=== PATIENT | female | born 1995 | race Caucasian/White ===

== ENCOUNTER 2021-05-03 00:35 | Emergency (ER) | payer SELFPAY ==
[~2021-05-03] VITALS: Ht 165.1 cm; Wt 127.5 kg
[2021-05-03] MEDS ORDERED: FLOMAX0.4 MG PO (02:51)
[2021-05-03] MEDS ORDERED: ONDANSETRON ODT8 MG PO (02:51)
[2021-05-03] MEDS ORDERED: PERCOCET 5-3251 EACH PO (02:51)
== END 2021-05-03 03:20 | disposition home or self-care (01) ==
LOC: ED 00:35
DX: N20.2 Calculus of kidney with calculus of ureter (principal); Z87.891 Personal history of nicotine dependence
CPT/HCPCS: 74176; 80053; 81001; 83690; 84703; 85025; 96374; 96375; 96376; 99284-25; J1170; J1885; J2405